=== PATIENT | male | born 1985 | race American Indian/Alaskan Native ===

== ENCOUNTER 2018-07-09 12:01 | Emergency (ER) | payer SELFPAY ==
--- NOTE | 2018-07-09 12:17 | Emergency Department Report ---
Chief Complaint: Dental/Oral Stated Complaint: TOOTHACHE Time Seen by Provider: 07/09/18 12:09 - HPI History of Present Illness: This is a 33 y.o. male that presents with a toothache x 3 days. Patient reports throbbing pain for months that is intermittent. Patient have an appointment with the dentist in 2 weeks. He is requesting medication for pain control. Patient states there is no swelling just severe pain. He reports pain as 10/10 on pain scale and a constant throbbing sensation. He denies difficulty swallowing. - ROS Review of Systems: toothache on left lower side - Exam Vital Signs: Vital Signs 07/09/18 12:09 Temperature 98.4 F Pulse Rate 98 H Respiratory 16 Rate Blood Pressure 148/73 O2 Sat by Pulse 94 Oximetry Physical Exam: GENERAL: The patient is looking well, in no acute distress. HEENT: Atraumatic and normocephalic. Pupils are equal, round, reactive to light, and accommodation. Extraocular movements are intact. There is no icterus, cyanosis, or pallor of the conjunctivae. Tympanic membranes normal bilaterally. Nasal turbinates are clear without exudates. Sinuses nontender to percussion. Posterior pharynx is normal. No exudates are noted. Dark brown/black dental caries #18, tenderness on percussion, no swelling CHEST: Air entry is adequate bilaterally with no rhonchi, and crackles. HEART: Sounds 1 and 2 are heard and are normal. Regular rate and rhythm, no tachycardic, murmurs, gallops, or rubs. ABDOMEN: Soft and nontender. Bowel sounds are present and normal. There is no hepatosplenomegaly. SKIN: Without rash. EXTREMITIES: Without edema, cyanosis, or clubbing. MSE screening note: Focused history and physical exam performed. Due to findings the following was ordered: ED Medical Decision Making - Medical Decision Making This is a 33 y.o. male that presents with dental caries to left lower side. This patient was evaluated by this provider. Vitals are stable and patient is in no acute distress. On focal exam there is a dental caries at #18, no palpable mass or abscess. Start Tylenol #3 and naproxen for pain. Patient will need to keep scheduled appointment with dentist and follow up with them. Discharged home stable. Follow-up with dentist from patient given emergency dental follow-up. She agreed with ED plan. ED Disposition for MSE Clinical Impression: Dental caries, Toothache Disposition: TO HOME OR SELFCARE Is pt being admited?: No Does the pt Need Aspirin: No Condition: Stable Instructions: Dental Caries (ED), Toothache (ED) Additional Instructions: Take pain medication every 6-8 hours as needed. Follow up with a dentist for continued care. Prescriptions: Naproxen [Naprosyn] 500 mg PO TID #15 tablet Acetaminophen/Codeine [Tylenol /Codeine # 3 tab] 1 tab PO Q6H PRN #12 tab PRN Reason: Pain , Severe (7-10) Referrals: [facility] [Outside] - 3-5 Days [facility] [Outside] - 3-5 Days [facility] [Outside] - 3-5 Days Forms: Work/School Release Form(ED) Time of Disposition: 12:41
== END 2018-07-09 13:25 | disposition home or self-care (01) ==
LOC: ED 12:01
DX: K02.9 Dental caries, unspecified (principal)
CPT/HCPCS: 99282